=== PATIENT | female | born 1995 | race Caucasian/White ===

== ENCOUNTER 2019-10-12 07:53 | Outpatient (CLI) | payer OTHER ==
--- NOTE | 2019-10-12 09:24 | ULT ---
ULTRASOUND PELVIC ULTRASOUND TRANSVAGINAL DOPPLER DUPLEX: DATE: 10/12/2019 HISTORY: 24-year-old female with pelvic pain TECHNIQUE: Transabdominal transducer and endovaginal transducer used to visualize intrapelvic contents with winn scale, color-flow, and spectral analysis. FINDINGS: Uterus: 7 x 3 x 4 cm. Endometrial stripe: 0.6 cm (6 mm) No obvious uterine fibroid identified. Right ovary: 3.6 x 2.1 x 2.6 cm. Left ovary: 3.3 x 2 x 2.7 cm. No ovarian cyst. Flow demonstrated in both ovaries. Tiny amount of free fluid in cul-de-sac. IMPRESSION: Negative
== END 2019-10-12 07:54 | disposition home or self-care (01) ==
LOC: BICULT 07:53
PROVIDERS: ATTEND Family Medicine
DX: R10.2 Pelvic and perineal pain (principal)
CPT/HCPCS: 76856